=== PATIENT | male | born 1950 | race Caucasian/White ===

== ENCOUNTER 2017-01-27 05:09 | Day surgery (SDC) | payer BC ==
[2017-01-17 17:57] LABS: HEMATOCRIT 41.4 % (40.0-51.0); HEMOGLOBIN 13.9 g/dL (13.6-17.8)
[2017-01-17 18:11] LABS: BUN (BLOOD UREA NITROGEN) 14 MG/DL (6-23); CALCIUM, SERUM 8.5 MG/DL (8.5-10.4); CHLORIDE, SERUM 105 MMOL/L (96-112); CO2 (CARBON DIOXIDE) 29 MMOL/L (24-34); CREATININE 0.96 MG/DL (0.70-1.30); GFR AFRICAN AMERICAN 94 ML/MIN (>=60); GFR NON AFRICAN AMERICAN 81 ML/MIN (>=60); GLUCOSE, SERUM 131 MG/DL (60-99); POTASSIUM, SERUM 3.9 MMOL/L (3.5-5.3); SODIUM, SERUM 142 MMOL/L (135-148)
--- NOTE | ~2017-01-27 | OP ---
Record Of Operation [facility] [address] [place]. [address] NAME: GEORGE GAMEZ : 46 STATUS : [facility]#: [id number] AGE: 66 ADM/REG DATE : 01/27/17 MR#: [id number] REPORT SERV DATE: 01/27/17 DICTATED BY: BJ GREGORIO DATE: 01/27/17 REPORT STATUS : Draft TRANSCRIBED BY: MODL DATE: 01/27/17 DATE OF PROCEDURE: 01/27/2017 PREOPERATIVE DIAGNOSIS: Right unstable medial and lateral meniscus tears with some bone edema by MRI. POSTOPERATIVE DIAGNOSIS: Right unstable medial and lateral meniscus tears with some bone edema by MRI. Negative subchondral collapse arthroscopically. PROCEDURE: Right medial and lateral meniscectomy and synovectomy. COMPLICATIONS: None. ANESTHESIA: General endotracheal. INDICATIONS: This 66-year-old male underwent extensive over a year of nonoperative treatment for unstable meniscus tears. He is having severe pain and buckling events. He had a history of DVT in the past, but he eventually could not live with his symptoms anymore. We obtained cardiac and medical clearance and discussed risks of blood clot, infection, persistent pain, or need for further surgery. Given the risk profile of a total knee arthroplasty and the severity of his symptoms and the consistency of his symptoms with meniscal pathology, we felt it was reasonable to proceed after discussion with a conservative approach with arthroscopic treatment. PROCEDURE IN DETAIL: The patient was induced in the supine position. He was taken to the operating room, induced in supine position, and the right lower extremity was prepped and draped in the standard surgical fashion. A time-out protocol was enforced. Ancef was administered. Anterolateral portal was created for diagnostic arthroscopy, which revealed severe synovitis. There were brownish fluid drained from the knee. There was severe synovitis in the gutters. ACL and PCL were normal. There was an unstable body-horn junction tear of the medial meniscus flipped into the medial gutter of 180 degrees and a severely macerated lateral meniscus tear. 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 Grade 2 and patchy areas of grade 3, but no obvious full-thickness chondral loss. Anteromedial portal was created. Ligament was taken down. Fat pad was resected. We used the ablator. No tourniquet was utilized in this case. We went to a varus stress and debrided with a straight right and left and up biters the lateral meniscus. Chondroplasty was performed on the lateral femoral condyle. We then switched viewing and instrumentation portals and completed the meniscectomy. We coagulated a capsular bleeder posteriorly. We then went to a valgus stress. There was completely unstable body tear and this was resected and the shaver was used to perform a chondroplasty of unstable cartilage margins on the medial femoral condyle, and we trimmed up the meniscus. We were able to save the majority of the medial meniscus. We then delivered some intra-articular tranexamic acid and Duramorph. We closed the wounds with nylon. Scope was withdrawn. The patient tolerated Record Of Operation [address] [place]. [address] NAME: GEORGE GAMEZ : 46 STATUS : [facility] PAT#: [id number] AGE: 66 ADM/REG DATE : 01/27/17 MR#: [id number] REPORT SERV DATE: 01/27/17 DICTATED BY: BJ GREGORIO. DATE: 01/27/17 REPORT STATUS : Draft TRANSCRIBED BY: MODL DATE: 01/27/17 the procedure well and was taken to the PACU in stable condition. POSTOPERATIVE PLAN: Partial weightbearing for two to four weeks on crutches. Lovenox in the PACU and then resume with a loading dose his Coumadin tonight. PAVEL/MODL Bj Gregorio M.D. / [id number] CC: Starr Navarro M.D.
[~2017-01-27 05:09] MED LIST: AMARYL2 PO; FLOMAX4 PO; JANTOVEN2.5 MG PO; JANTOVEN5 MG PO; LOVENOX150 SC; PRILOSEC40 MG PO; PRIN10 PO; ZOCOR40 PO
[2017-01-27 06:25] LABS: INTERNATIONAL NORMAL RATI 1.4 UNITS (-); PROTIME (NOT ORD) 16.9 SEC (12.0-14.5)
== END 2017-01-27 09:42 | disposition home or self-care (01) ==
LOC: SDC 05:09
PROVIDERS: Orthopaedic Surgery Sports Medicine
PROC: 0SBC4ZZ Excision of Right Knee Joint, Percutaneous Endoscopic Approach (ICD-10-PCS; 2017-01-27)
PROC: 0MQN4ZZ Repair Right Knee Bursa and Ligament, Percutaneous Endoscopic Approach (ICD-10-PCS; 2017-01-27)
PROC: 0SBC4ZZ Excision of Right Knee Joint, Percutaneous Endoscopic Approach (ICD-10-PCS; principal; 2017-01-27 05:45)
DX: S83.281A Other tear of lateral meniscus, current injury, right knee, initial encounter (principal); S83.241A Other tear of medial meniscus, current injury, right knee, initial encounter; M94.261 Chondromalacia, right knee; M19.90 Unspecified osteoarthritis, unspecified site; I10 Essential (primary) hypertension; E78.5 Hyperlipidemia, unspecified; E11.9 Type 2 diabetes mellitus without complications; E78.00 Pure hypercholesterolemia, unspecified; K21.9 Gastro-esophageal reflux disease without esophagitis; Z86.718 Personal history of other venous thrombosis and embolism; Z86.711 Personal history of pulmonary embolism; Z79.84 Long term (current) use of oral hypoglycemic drugs; Z79.01 Long term (current) use of anticoagulants; Z79.899 Other long term (current) drug therapy; Z87.442 Personal history of urinary calculi; Z90.49 Acquired absence of other specified parts of digestive tract; Z98.890 Other specified postprocedural states; Z87.891 Personal history of nicotine dependence
CPT/HCPCS: 80048; 82962; 85014; 85018; 85610; A9270-GY; J0690; J2250; J2274; J2405; J3010